=== PATIENT | female | born 1955 | race Caucasian/White ===

== ENCOUNTER 2020-11-11 10:15 | Outpatient (CLI) | payer MEDICARE, OTHER, SELFPAY ==
--- NOTE | 2020-11-11 10:27 | NM_ITS ---
WS: [id number] NUCLEAR MEDICINE HIDA SCAN WITH GALLBLADDER EJECTION FRACTION HISTORY: ACUTE RUQ ABD PAIN COMPARISON: None available. TECHNIQUE: The patient was intravenously injected with 4.5 mCi of TC99m Mebrofenin. Immediate imaging over the right upper quadrant was followed by 5 minute image and additional images for a total of 60 minutes. Normal uptake of radiotracer throughout the liver. Activity identified in the gallbladder at 15 minutes and well distended by 60 minutes. Activity in the proximal small bowel was seen by 30 minutes. Good washout of the radiotracer from the liver by 60 minutes. The patient then drank 8 ounces of Ensure Plus. Ejection fraction at 60 minutes was 93%. Normal GB ej ection fraction is 35-75%. Post fatty meal symptoms: None. NM/NM hepatobiliary w phar* [id number] IMPRESSION: 1. Normal HIDA scan. 2. Normal gallbladder ejection fraction.
== END 2020-11-11 10:16 | disposition home or self-care (01) ==
LOC: RAD 10:24
PROVIDERS: PCP Physician Assistant Medical; Visit Provider Physician Assistant Medical
DX: R10.11 Right upper quadrant pain (principal)
CPT/HCPCS: 78227; A9537

== ENCOUNTER 2022-01-01 | Outpatient (CLI) | payer MEDICARE, OTHER, SELFPAY | END 2022-01-01 23:00 | disposition home or self-care (01) | LOC: RAD 03-05 22:10 | PROVIDERS: PCP Nurse Practitioner Family; Visit Provider Specialist | DX: R20.0 Anesthesia of skin (principal); R20.2 Paresthesia of skin | CPT/HCPCS: 36415; 85651; 86160; 86162; 86235; 86255; 86376; 99204; 99205 ==

== ENCOUNTER → 2022-01-01 13:16 | Outpatient (BNVA) | payer MEDICARE, OTHER, SELFPAY | PROVIDERS: PCP Nurse Practitioner Family; Referring Provider Nurse Practitioner Family; Visit Provider Specialist | DX: R90.89 Other abnormal findings on diagnostic imaging of central nervous system (principal); G43.711 Chronic migraine without aura, intractable, with status migrainosus; F17.200 Nicotine dependence, unspecified, uncomplicated | CPT/HCPCS: 99205 ==

== ENCOUNTER → 2022-02-07 09:52 | Outpatient (BNVA) | payer MEDICARE, OTHER, SELFPAY | PROVIDERS: PCP Nurse Practitioner Family; Visit Provider Specialist | DX: G43.711 Chronic migraine without aura, intractable, with status migrainosus (principal); Z86.73 Personal history of transient ischemic attack (TIA), and cerebral infarction without residual deficits; R90.82 White matter disease, unspecified; F17.210 Nicotine dependence, cigarettes, uncomplicated; R76.8 Other specified abnormal immunological findings in serum; M25.519 Pain in unspecified shoulder; M25.559 Pain in unspecified hip; M54.2 Cervicalgia; M54.9 Dorsalgia, unspecified | CPT/HCPCS: 99215 ==

== ENCOUNTER 2022-02-08 15:00 | Outpatient (CLI) | payer MEDICARE, OTHER, SELFPAY ==
--- NOTE | 2022-02-08 15:15 | MR_ITS ---
WS: [id number] MRA ANGIOGRAPHY NATIVE OF [place] HISTORY: I67.9 - Cerebrovascular disease, unspecified COMPARISON: None available. TECHNIQUE: 3-D MR angiography is performed of the [place] of [place]. All images are reviewed including source images. Very small caliber distal RIGHT vertebral artery but it is patent. Dominant LEFT vertebral artery. Th e basilar artery is normal. Posterior cerebral arteries are both well identified and normal. Small ca liber posterior communicating arteries. Intracranial carotid arteries are normal size. No occlusions. Middle cerebral arteries are both well opacified. No aneurysms. Absent or hypoplastic LEFT A1 segment. A2 segments are patent. Anterior comm unicating artery is normal. MR/MR angio head wo con [id number] IMPRESSION: 1. Absent or hypoplastic LEFT A1 segment. 2. No aneurysms or occlusion or stenosis.
--- NOTE | 2022-02-08 15:30 | MR_ITS ---
WS: [id number] MRI BRAIN WITH AND WITHOUT CONTRAST HISTORY: I67.9 - Cerebrovascular disease, unspecified, possible stroke. COMPARISON: 08/11/2021 TECHNIQUE: Multiplanar imaging performed through the brain with MultiHance 15 ml's IV. Quality of this examination is compromised by motion. Patient was unable to remain still for this exa mination. No acute infarcts are seen. Andres-white matter differentiation is well preserved. No significant signa l abnormality noted in the white matter but these may not be identified due to motion artifact. Small vessel ischemic disease was identified on the prior brain from 08/11/2021. No susceptibility artifacts or prior lacunar infarcts. Ventricles and extra-axial spaces are normal. Clivus and pituitary gland are normal. Visualized posterior fossa and brainstem are also normal. Significantly limited by motion artifact. Enhancing soft tissue mass measuring 10 x 7 mm involving th e posterior RIGHT temporal region. This is probably a dural based mass and may be a meningioma. This is very difficult to completely described due to the significant motion artifact. This is really only seen on one sequence. Dural venous sinuses are normal. Paranasal sinuses: Well aerated with no significant disease. Mastoid air cells: Normal. Calvarium and scalp: Normal. MR/MR head wo/w con [id number] IMPRESSION: 1. No acute infarct. No areas of hemorrhage or midline shift. 2. Study is significantly compromised by motion artifact. 3. Suspect dural based mass consistent with meningioma involving the RIGHT tem poral region measuring 10 x 7 mm. Suggest repeating MRI with contrast in 3 [facility] hs as this is very poorly visualized due to the motion.
== END 2022-02-08 15:01 | disposition home or self-care (01) ==
LOC: RAD 15:01
PROVIDERS: PCP Nurse Practitioner Family; Visit Provider Specialist
DX: I67.9 Cerebrovascular disease, unspecified (principal)
CPT/HCPCS: 70544; 70551; 70553

== ENCOUNTER 2022-02-28 11:06 | Emergency (ER) | payer MEDICARE, OTHER, SELFPAY ==
[2022-02-28 12:20] VITALS: BP 195/92; PULSE 65; RESP 14; TEMP 36.4; O2SAT 99; BMI 21.9
[2022-02-28 13:10] LABS: Basophils # 0.1 10^3/uL (0.0-0.1); Basophils % 0.9 %; Eosinophils % 0.2 %; Hematocrit 46.6 % (37.0-47.0); Hemoglobin 14.8 g/dL (11.5-15.3); Lymphocytes % 16.7 %; Mean Corpuscular HGB Conc 31.8 g/dL (30.0-36.0); Mean Corpuscular Hemoglobin 30.5 pg (28.0-34.0); Mean Corpuscular Volume 96.1 fl (81-99); Mean Platelet Volume 12.1 fL (7.4-10.4); Monocytes # 0.4 10^3/uL (0.2-0.9); Neutrophils # 9.45 10^3/uL (1.8-7.7); Neutrophils % 78.8 %; Nucleated Red Blood Cells % 0 %; Platelet Count 389 10^3/cmm (130-400); Red Blood Count 4.85 10^6/uL (4.1-5.3)
[2022-02-28 13:32] LABS: Alanine Aminotransferase 15 U/L (0-33); Albumin Level 4.4 g/dL (3.5-5.2); Alkaline Phosphatase 90 U/L (35-105); Anion Gap 16.9 (5-19); Aspartate Amino Transferase 22 U/L (0-32); Blood Urea Nitrogen 18 mg/dL (8-23); Calcium 10.3 mg/dL (8.5-10.5); Carbon Dioxide 24 mmol/L (22-29); Chloride 103 mmol/L (98-107); Globulin 3.1 g/dL (1.3-4.6); Glomerular Filtration Rate 55.1 mL/min (90-130); Glucose 118 mg/dL (65-115); Lipase 33 U/L (13-60); Osmolality Calculated 293 mOsm/kg (285-295); Potassium 3.9 mmol/L (3.5-5.1); Sodium 140 mmol/L (136-145); Total Bilirubin 0.4 mg/dL (0.15-1.2); Total Protein 7.5 g/dL (6.6-8.7)
--- NOTE | 2022-02-28 13:59 | US_ITS ---
WS: [id number] RIGHT UPPER QUADRANT ULTRASOUND HISTORY: RUQ and epigastric pain, n/v COMPARISON: None available. Liver: 12.3 cm in length. Normal size liver. No bile duct dilatation or mass. Portal Vein: Normal hepatopetal flow with monophasic waveform. Gallbladder: Normally distended gallbladder with no stones or wall thickening. CBD: 0.6 cm Pancreas: Normal size and echogenicity. Right kidney: 8.4 cm in length. Low normal size and normal echogenicity. No hydronephrosis or mass. Aorta and IVC: Unremarkable abdominal aorta and IVC. No ascites. US/US gall bladder [id number] IMPRESSION: Normal RIGHT upper quadrant ultrasound.
--- NOTE | 2022-02-28 14:02 | W.ED.ABDPA2 ---
Documented by User: MEG Hernadez 02/28/22 21:48 HPI - Abdominal Pain General: Chief Complaint: Abdominal Pain Stated Complaint: Abd pain Time Seen by Provider: 02/28/22 13:29 History of Present Illness: Patient is a 66-year-old female comes to the ED with abdominal pain. Patient has been having this abdominal pain on and off for the past 2 years. She has been told before the past that its gallbladder attacks but has not seen a general surgeon for follow-up. Over the past couple days she has had worsening epigastric and right upper quadrant abdominal pain. She rates her pain currently a 10 out of 10. Pain radiates to the middle of her back. She has nausea and vomiting along with the pain. Her symptoms worsen after she eats. Denies any fevers. Patient endorses taking Protonix daily but says for the past couple weeks she stopped taking it to see if that would help her symptoms. Since stopping Protonix she says her abdominal pain is remained unchanged and has not gotten any better or worse. Associated Symptoms: Reports nausea and vomiting; Denies chills, constipation, diarrhea, dysuria, fever(s), hematochezia and hematuria Review of Systems Const: Denies: fever(s), chills or fatigue Eyes: Denies: change in vision or eye discomfort ENMT: Denies: throat pain, odynophagia, nasal discharge or nasal congestion Card: Denies: chest pain, palpitations, edema, swelling of feet/ankles, dyspnea on exertion or orthopnea Resp: Denies: dyspnea, productive cough or non-productive cough GI: Reports: abdominal pain, nausea and vomiting; Denies: diarrhea, constipation or hematochezia : Denies: flank pain, dysuria or hematuria Musc: Denies: neck pain, back pain or extremity swelling Skin/Breast: Denies: rash or new lesions Neuro: Denies: headache(s), numbness in extremities or weakness in extremities PFSH ED PFSH: Medical History (Updated 02/28/22 @ 17:12 by MEG Hernadez) Lyme disease Surgical History (Updated 02/28/22 @ 14:04 by MEG Hernadez) Hx of total hip arthroplasty Family History Mother Cancer Father Diabetes Son Diabetes Sister Diabetes Social History Smoking and tobacco status: never smoked Alcohol intake: never Physical Exam Const: COMMON NORMALS: patient oriented x3 and alert GENERAL APPEARANCE: cooperative HENMT: COMMON NORMALS: normocephalic HEAD & SCALP: normocephalic MOUTH: Normal oral and palatal mucosa present THROAT: posterior oropharynx normal and uvula midline Neck/C-Spine: COMMON NORMALS: supple GENERAL: Yes normal visual inspection Resp: COMMON NORMALS: normal respiratory effort, No retractions, No use of accessory muscles and clear to auscultation bilaterally AUSCULTATION: clear to auscultation bilaterally Cardio: COMMON NORMALS: regular rate, regular rhythm, S1 normal heart sound present, S2 normal heart sound present, No gallops present (Cardio), No clicks present (Cardio), No murmurs present (Cardio) and Peripheral pulses 2+ throughout RATE: regular rate RHYTHM: regular rhythm HEART SOUNDS: S1 normal heart sound present and S2 normal heart sound present PERIPHERAL PULSES: Peripheral pulses 2+ throughout GI: COMMON NORMALS: Normal to inspection, nondistended, normoactive bowel sounds present, Soft to palpation and no masses PALPATION: Yes Soft to palpation and Yes Tenderness to palpation present (GI) Details: RUQ and other (Epigastric) : COMMON NORMALS: Yes no CVA tenderness BLADDER/KIDNEY EXAM: Yes no CVA tenderness Back/Pelvis: COMMON NORMALS: no CVA tenderness Extremity: COMMON NORMALS: normal to inspection Neuro: COMMON NORMALS: patient oriented x3 SENSORIUM/ORIENTATION: Yes alert GAIT: Yes Normal gait present Skin: GENERAL SKIN EXAM: dry skin Course Vital Signs: Vital signs: Vital Signs Temperature 97.6 F 02/28/22 12:20 Pulse Rate 65 02/28/22 18:27 Respiratory Rate 18 02/28/22 15:21 Blood Pressure 123/56 02/28/22 18:27 Pulse Oximetry 97 02/28/22 18:27 Oxygen Delivery Me thod 02/28/22 17:00 MDM - Abdominal Pain Medical Decision Making Patient is a 66-year-old female comes to the ED with abdominal pain nausea vomiting. Patient says she has been struggling with episodic symptoms like this for the past 2 years. Abdominal pain is in right upper quadrant and epigastric region of abdomen. Vitals are stable. She appears nontoxic and in no acute distress or pain. Patient has epigastric and right upper quadrant abdominal tenderness. Rest of exam is benign. White blood cell count 12 and the rest of her labs are unremarkable. H. pylori negative. Ultrasound gallbladder showed normal right upper quadrant. CT of abdomen pelvis showed some prominent fluid in the small bowel which could reflect an enterocolitis but no other acute findings noted. Patient was given IV fluids, Zofran and morphine and her symptoms were controlled. Given patient's symptoms and history she likely has biliary colic and I am referring her to general surgery for follow-up. Patient was discharged home with a prescription for Zofran and some Percocet to help with pain. Return to ED precautions given. Patient understood and agreed with plan. Lab Data I reviewed the patient's lab results. : 02/28/22 13:03 02/28/22 13:03 Labs/Radiology: Radiology Impressions Gallbladder Ultrasound 02/28/22 13:59 IMPRESSION: Normal RIGHT upper quadrant ultrasound. Abdomen/Pelvis CT 02/28/22 15:12 IMPRESSION: 1. Prominent fluid in the small bowel and colon may reflect an enterocolitis. 2. Emphysematous changes. 3. Bilateral renal cysts, negative for follow-up advised. COMMENTS: Consistent with the [employer]'s Incidental Findings Committee white paper (J Am Cuate Radiol 2018): Any incidental renal lesion less than 1 cm or classified as too small to characterize, or any incidental cystic renal lesion characterized as simple-appearing, is likely benign. No follow-up imaging is recommended for these lesions per consensus recommendations based on imaging criteria. Laboratory Results WBC 12.0 10^3/uL (4.0-10.0) H 02/28/22 13:03 RBC 4.85 10^6/uL (4.1-5.3) 02/28/22 13:03 Hgb 14.8 g/dL (11.5-15.3) 02/28/22 13:03 Hct 46.6 % (37.0-47.0) 02/28/22 13:03 MCV 96.1 fl (81-99) 02/28/22 13:03 MCH 30.5 pg (28.0-34.0) 02/28/22 13:03 MCHC 31.8 g/dL (30.0-36.0) 02/28/22 13:03 RDW 15.0 % (12.1-15.1) 02/28/22 13:03 Plt Count 389 10^3/cmm (130-400) 02/28/22 13:03 MPV 12.1 fL (7.4-10.4) H 02/28/22 13:03 Neut % (Auto) 78.8 % 02/28/22 13:03 Lymph % (Auto) 16.7 % 02/28/22 13:03 [place] % (Auto) 3.0 % 02/28/22 13:03 Eos % (Auto) 0.2 % 02/28/22 13:03 Baso % (Auto) 0.9 % 02/28/22 13:03 Neut # (Auto) 9.45 10^3/uL (1.8-7.7) H 02/28/22 13:03 Lymph # (Auto) 2.0 10^3/uL (0.8-4.8) 02/28/22 13:03 [place] # (Auto) 0.4 10^3/uL (0.2-0.9) 02/28/22 13:03 Eos # (Auto) 0.0 10^3/uL (0.0-0.8) 02/28/22 13:03 Baso # (Auto) 0.1 10^3/uL (0.0-0.1) 02/28/22 13:03 Nucleated RBC % (auto) 0 % 02/28/22 13:03 Nucleated RBCs # 0.0 /100WBC 02/28/22 13:03 Sodium 140 mmol/L (136-145) 02/28/22 13:03 Potassium 3.9 mmol/L (3.5-5.1) 02/28/22 13:03 Chloride 103 mmol/L (98-107) 02/28/22 13:03 Carbon Dioxide 24 mmol/L (22-29) 02/28/22 13:03 Anion Gap 16.9 (5-19) 02/28/22 13:03 BUN 18 mg/dL (8-23) 02/28/22 13:03 Creatinine 1.0 mg/dL (0.5-0.9) H 02/28/22 13:03 GFR Calculation 55.1 mL/min (90-130) L 02/28/22 13:03 Glucose 118 mg/dL (65-115) H 02/28/22 13:03 Calculated Osmolality 293 mOsm/kg (285-295) 02/28/22 13:03 Calcium 10.3 mg/dL (8.5-10.5) 02/28/22 13:03 Total Bilirubin 0.4 mg/dL (0.15-1.2) 02/28/22 13:03 AST 22 U/L (0-32) 02/28/22 13:03 ALT 15 U/L (0-33) 02/28/22 13:03 Alkaline Phosphatase 90 U/L (35-105) 02/28/22 13:03 Total Protein 7.5 g/dL (6.6-8.7) 02/28/22 13:03 Albumin 4.4 g/dL (3.5-5.2) 02/28/22 13:03 Globulin 3.1 g/dL (1.3-4.6) 02/28/22 13:03 Lipase 33 U/L (13-60) 02/28/22 13:03 Urine Color Yellow (Yellow) 02/28/22 14:58 Urine Appearance Clear (CLEAR) 02/28/22 14:58 Urine pH 5 (5-7) 02/28/22 14:58 Ur Specific [place] 1.020 (1.005-1.030) 02/28/22 14:58 Urine Protein Neg (Negative) 02/28/22 14:58 Urine Glucose (UA) Norm (Normal) 02/28/22 14:58 Urine Ketones 1+ (Negative) H 02/28/22 14:58 Urine Blood Neg (Negative) 02/28/22 14:58 Urine Nitrate Negative (Negative) 02/28/22 14:58 Urine Bilirubin Neg (Negative) 02/28/22 14:58 Urine Urobilinogen Norm mg/dL (Negative) 02/28/22 14:58 Ur Leukocyte Esterase Negative (Negative) 02/28/22 14:58 H. pylori IgG Antibody Negative (Negative) 02/28/22 13:03 Discharge Plan Discharge Patient Disposition: Home Clinical Impression: Biliary colic Condition: Stable Prescriptions: New ondansetron 4 mg tablet,disintegrating 4 mg PO Q8H PRN (Reason: nausea and vomiting) Qty: 20 0RF No Action cetirizine 10 mg tablet 10 mg PO DAILY PRN (Reason: Allergy Symptoms) atorvastatin 20 mg tablet 20 mg PO DAILY pantoprazole 40 mg tablet,delayed release (DR/EC) 40 mg PO DAILY furosemide [Lasix] 20 mg tablet 20 mg PO DAILY atomoxetine [Strattera] 80 mg capsule 80 mg PO DAILY baclofen 10 mg tablet 10 mg PO DAILY estradiol [Estrace] 1 mg tablet 0.5 mg PO DAILY potassium chloride 20 mEq/15 mL liquid 20 meq PO DAILY tizanidine [Zanaflex] 4 mg capsule 4 mg PO BID PRN (Reason: Muscle Spasm) multivitamin Tablet 1 tab PO DAILY clopidogrel 75 mg tablet 75 mg PO ONCE 90 Days Qty: 90 0RF amitriptyline 25 mg tablet 25 mg PO ONCE 90 Days Qty: 90 0RF topiramate [Topamax] 100 mg tablet 100 mg PO DAILY 90 Days Qty: 90 3RF propranolol 20 mg tablet 20 mg PO BID Qty: 60 0RF fluticasone propionate 50 mcg/actuation spray,suspension 2 spray INTRANASAL DAILY duloxetine 40 mg capsule,delayed release(DR/EC) 40 mg PO BID PRN (Reason: Anxiety) Discharge Orders: Discharge ED (Routine); Ordered 02/28/22 Ordered By: Hector Rivas Referrals: Atul Khoury [Primary Care Provider] - Discharge Diet: Advance as tolerated and Clear Liquid Discharge Activity: Increase activity as tolerated Patient Instructions: Biliary Colic (ED), Opioid Safety Activity Restrictions/Additional Instructions: Follow-up with medical provider as directed in the next 5 to 7 days for reevaluation. Case management will contact you in the next several days set up an appointment with general surgery for follow-up on abdominal pain, nausea and vomiting. Take medications as prescribed. Return to the ER or your medical provider if condition worsens. Please read and understand discharge instructions. Thank you for choosing [facility] for your healthcare needs today. Please realize this is an emergency room and that we are providing you with a medical screening exam and this may not be complete and all inclusive of all the testing and or work up that you may need to determine your ailment or severity of your illness. It is very important that you follow up as instructed or that you return to the Emergency Department should you have concerns or if your condition changes or worsens in any way. Coding Level of Care Code ED Billiard Table Assembler for Chg Fwd Exam Comprehensive Documented by User: Husam Goldberg MD 03/02/22 12:22 HPI - Abdominal Pain General: Chief Complaint: Abdominal Pain Stated Complaint: Abd pain Time Seen by Provider: 02/28/22 13:29 PFS ED PFSH: Medical History (Updated 02/28/22 @ 17:12 by MEG Hernadez) Lyme disease Surgical History (Updated 02/28/22 @ 14:04 by MEG Hernadez) Hx of total hip arthroplasty Family History Mother Cancer Father Diabetes Son Diabetes Sister Diabetes Social History Smoking and tobacco status: never smoked Alcohol intake: never Course Vital Signs: Vital signs: Vital Signs Temperature 97.6 F 02/28/22 12:20 Pulse Rate 65 02/28/22 18:27 Respiratory Rate 18 02/28/22 15:21 Blood Pressure 123/56 02/28/22 18:27 Pulse Oximetry 97 02/28/22 18:27 Oxygen Delivery Me thod 02/28/22 17:00 MDM - Abdominal Pain Medical Decision Making Patient is a 66-year-old female comes to the ED with abdominal pain nausea vomiting. Patient says she has been struggling with episodic symptoms like this for the past 2 years. Abdominal pain is in right upper quadrant and epigastric region of abdomen. Vitals are stable. She appears nontoxic and in no acute distress or pain. Patient has epigastric and right upper quadrant abdominal tenderness. Rest of exam is benign. White blood cell count 12 and the rest of her labs are unremarkable. H. pylori negative. Ultrasound gallbladder showed normal right upper quadrant. CT of abdomen pelvis showed some prominent fluid in the small bowel which could reflect an enterocolitis but no other acute findings noted. Patient was given IV fluids, Zofran and morphine and her symptoms were controlled. Given patient's symptoms and history she likely has biliary colic and I am referring her to general surgery for follow-up. Patient was discharged home with a prescription for Zofran and some Percocet to help with pain. Return to ED precautions given. Patient understood and agreed with plan. I have reviewed this documentation by MEG Hernadez. Husam Goldberg MD Emergency Medicine Lab Data : 02/28/22 13:03 02/28/22 13:03 Labs/Radiology: Radiology Impressions Gallbladder Ultrasound 02/28/22 13:59 IMPRESSION: Normal RIGHT upper quadrant ultrasound. Abdomen/Pelvis CT 02/28/22 15:12 IMPRESSION: 1. Prominent fluid in the small bowel and colon may reflect an enterocolitis. 2. Emphysematous changes. 3. Bilateral renal cysts, negative for follow-up advised. COMMENTS: Consistent with the [employer]'s Incidental Findings Committee white paper (J Am Cuate Radiol 2018): Any incidental renal lesion less than 1 cm or classified as too small to characterize, or any incidental cystic renal lesion characterized as simple-appearing, is likely benign. No follow-up imaging is recommended for these lesions per consensus recommendations based on imaging criteria. Laboratory Results WBC 12.0 10^3/uL (4.0-10.0) H 02/28/22 13:03 RBC 4.85 10^6/uL (4.1-5.3) 02/28/22 13:03 Hgb 14.8 g/dL (11.5-15.3) 02/28/22 13:03 Hct 46.6 % (37.0-47.0) 02/28/22 13:03 MCV 96.1 fl (81-99) 02/28/22 13:03 MCH 30.5 pg (28.0-34.0) 02/28/22 13:03 MCHC 31.8 g/dL (30.0-36.0) 02/28/22 13:03 RDW 15.0 % (12.1-15.1) 02/28/22 13:03 Plt Count 389 10^3/cmm (130-400) 02/28/22 13:03 MPV 12.1 fL (7.4-10.4) H 02/28/22 13:03 Neut % (Auto) 78.8 % 02/28/22 13:03 Lymph % (Auto) 16.7 % 02/28/22 13:03 [place] % (Auto) 3.0 % 02/28/22 13:03 Eos % (Auto) 0.2 % 02/28/22 13:03 Baso % (Auto) 0.9 % 02/28/22 13:03 Neut # (Auto) 9.45 10^3/uL (1.8-7.7) H 02/28/22 13:03 Lymph # (Auto) 2.0 10^3/uL (0.8-4.8) 02/28/22 13:03 [place] # (Auto) 0.4 10^3/uL (0.2-0.9) 02/28/22 13:03 Eos # (Auto) 0.0 10^3/uL (0.0-0.8) 02/28/22 13:03 Baso # (Auto) 0.1 10^3/uL (0.0-0.1) 02/28/22 13:03 Nucleated RBC % (auto) 0 % 02/28/22 13:03 Nucleated RBCs # 0.0 /100WBC 02/28/22 13:03 Sodium 140 mmol/L (136-145) 02/28/22 13:03 Potassium 3.9 mmol/L (3.5-5.1) 02/28/22 13:03 Chloride 103 mmol/L (98-107) 02/28/22 13:03 Carbon Dioxide 24 mmol/L (22-29) 02/28/22 13:03 Anion Gap 16.9 (5-19) 02/28/22 13:03 BUN 18 mg/dL (8-23) 02/28/22 13:03 Creatinine 1.0 mg/dL (0.5-0.9) H 02/28/22 13:03 GFR Calculation 55.1 mL/min (90-130) L 02/28/22 13:03 Glucose 118 mg/dL (65-115) H 02/28/22 13:03 Calculated Osmolality 293 mOsm/kg (285-295) 02/28/22 13:03 Calcium 10.3 mg/dL (8.5-10.5) 02/28/22 13:03 Total Bilirubin 0.4 mg/dL (0.15-1.2) 02/28/22 13:03 AST 22 U/L (0-32) 02/28/22 13:03 ALT 15 U/L (0-33) 02/28/22 13:03 Alkaline Phosphatase 90 U/L (35-105) 02/28/22 13:03 Total Protein 7.5 g/dL (6.6-8.7) 02/28/22 13:03 Albumin 4.4 g/dL (3.5-5.2) 02/28/22 13:03 Globulin 3.1 g/dL (1.3-4.6) 02/28/22 13:03 Lipase 33 U/L (13-60) 02/28/22 13:03 Urine Color Yellow (Yellow) 02/28/22 14:58 Urine Appearance Clear (CLEAR) 02/28/22 14:58 Urine pH 5 (5-7) 02/28/22 14:58 Ur Specific [place] 1.020 (1.005-1.030) 02/28/22 14:58 Urine Protein Neg (Negative) 02/28/22 14:58 Urine Glucose (UA) Norm (Normal) 02/28/22 14:58 Urine Ketones 1+ (Negative) H 02/28/22 14:58 Urine Blood Neg (Negative) 02/28/22 14:58 Urine Nitrate Negative (Negative) 02/28/22 14:58 Urine Bilirubin Neg (Negative) 02/28/22 14:58 Urine Urobilinogen Norm mg/dL (Negative) 02/28/22 14:58 Ur Leukocyte Esterase Negative (Negative) 02/28/22 14:58 H. pylori IgG Antibody Negative (Negative) 02/28/22 13:03 Discharge Plan Discharge Patient Disposition: Home Clinical Impression: Biliary colic Condition: Stable Prescriptions: New ondansetron 4 mg tablet,disintegrating 4 mg PO Q8H PRN (Reason: nausea and vomiting) Qty: 20 0RF No Action cetirizine 10 mg tablet 10 mg PO DAILY PRN (Reason: Allergy Symptoms) atorvastatin 20 mg tablet 20 mg PO DAILY pantoprazole 40 mg tablet,delayed release (DR/EC) 40 mg PO DAILY furosemide [Lasix] 20 mg tablet 20 mg PO DAILY atomoxetine [Strattera] 80 mg capsule 80 mg PO DAILY baclofen 10 mg tablet 10 mg PO DAILY estradiol [Estrace] 1 mg tablet 0.5 mg PO DAILY potassium chloride 20 mEq/15 mL liquid 20 meq PO DAILY tizanidine [Zanaflex] 4 mg capsule 4 mg PO BID PRN (Reason: Muscle Spasm) multivitamin Tablet 1 tab PO DAILY clopidogrel 75 mg tablet 75 mg PO ONCE 90 Days Qty: 90 0RF amitriptyline 25 mg tablet 25 mg PO ONCE 90 Days Qty: 90 0RF topiramate [Topamax] 100 mg tablet 100 mg PO DAILY 90 Days Qty: 90 3RF propranolol 20 mg tablet 20 mg PO BID Qty: 60 0RF fluticasone propionate 50 mcg/actuation spray,suspension 2 spray INTRANASAL DAILY duloxetine 40 mg capsule,delayed release(DR/EC) 40 mg PO BID PRN (Reason: Anxiety) Discharge Orders: Discharge ED (Routine); Ordered 02/28/22 Ordered By: Hector Rivas Referrals: Atul Khoury [Primary Care Provider] - Discharge Diet: Advance as tolerated and Clear Liquid Discharge Activity: Increase activity as tolerated Patient Instructions: Biliary Colic (ED), Opioid Safety Activity Restrictions/Additional Instructions: Follow-up with medical provider as directed in the next 5 to 7 days for reevaluation. Case management will contact you in the next several days set up an appointment with general surgery for follow-up on abdominal pain, nausea and vomiting. Take medications as prescribed. Return to the ER or your medical provider if condition worsens. Please read and understand discharge instructions. Thank you for choosing [facility] for your healthcare needs today. Please realize this is an emergency room and that we are providing you with a medical screening exam and this may not be complete and all inclusive of all the testing and or work up that you may need to determine your ailment or severity of your illness. It is very important that you follow up as instructed or that you return to the Emergency Department should you have concerns or if your condition changes or worsens in any way. Coding Level of Care Code ED Billiard Table Assembler for Donte Isaacs Exam Comprehensive
[2022-02-28 14:58] LABS: H. Pylori IgG Antibody Negative (Negative)
--- NOTE | 2022-02-28 15:12 | CTR_ITS ---
PROCEDURE INFORMATION: Exam: CT Abdomen And Pelvis With Contrast Exam date and time: 02/28/2022 3:27 PM Age: 66 years old Clinical indication: Abdominal pain; Additional info: Epigastric abdominal pain, ruq pain w/ n/v TECHNIQUE: Imaging protocol: Computed tomography of the abdomen and pelvis with contrast. Radiation optimization: All CT scans at this facility use at least one of these dose optimization techniques: automated exposure control; mA and/or kV adjustment per patient size (includes targeted exams where dose is matched to clinical indication); or iterative reconstruction. Contrast material: OMNIPAUE 350; Contrast volume: 95 ml; Contrast route: INTRAVENOUS (IV); COMPARISON: CT abdomen pelvis wo con [id number] 08/24/2016 6:21 PM RADIATION DOSE METRICS: Total DLP (mGy-cm): 358.63 FINDINGS: Lungs: Emphysematous changes. Liver: Normal. No mass. Gallbladder and bile ducts: Normal. No calcified stones. No ductal dilation. Pancreas: Normal. No ductal dilation. Spleen: Normal. No splenomegaly. Adrenal glands: Normal. No mass. Kidneys and ureters: Bilateral renal cysts, negative for follow-up advised. Stomach and bowel: Prominent fluid in the small bowel and colon may reflect an enterocolitis. Appendix: No evidence of appendicitis. Intraperitoneal space: Unremarkable. No free air. No significant fluid collection. Vasculature: Unremarkable. No abdominal aortic aneurysm. Lymph nodes: Unremarkable. No enlarged lymph nodes. Urinary bladder: Unremarkable as visualized. Reproductive: Unremarkable as visualized. Bones/joints: Right sacroiliac joint hardware in place. Soft tissues: Unremarkable. CT/CT abdomen pelvis w con* [id number] IMPRESSION: 1. Prominent fluid in the small bowel and colon may reflect an enterocolitis. 2. Emphysematous changes. 3. Bilateral renal cysts, negative for follow-up advised. COMMENTS: Consistent with the [employer]'s Incidental Findings Committee white paper (J Am Cuate Radiol 2018): Any incidental renal lesion less than 1 cm or classified as too small to characterize, or any incidental cystic renal lesion characterized as simple-appearing, is likely benign. No follow-up imaging is recommended for these lesions per consensus recommendations based on imaging criteria.
[2022-02-28] MEDS: sodium chloride 0.9% 1,000 ML 999 ML IV (15:19)
[2022-02-28] MEDS: ondansetron 2 mg/ML SDV 2 mL 4 MG IVP (15:20)
[2022-02-28 15:21] VITALS: RESP 18
[2022-02-28] MEDS: morphine 4 mg/mL SDV 1 mL IVP ×2 (15:21→17:21)
[2022-02-28] MEDS: iohexol 350 mg/mL 100 mL Btl IV (15:38)
[2022-02-28 15:42] LABS: Add Urine Microscopic? NO; Charge for UA Resulting for Rev
[2022-02-28 16:24] VITALS: PULSE 65; O2SAT 96
[2022-02-28 16:54] LABS: Urine Appearance Clear (CLEAR); Urine Color Yellow (Yellow)
[2022-02-28 16:55] LABS: Bilirubin Urine Neg (Negative); Blood Urine Neg (Negative); Glucose Urine UA Norm (Normal); Ketones Urine 1+ (Negative); Leukocyte Esterase Urine Negative (Negative); Nitrate Urine Negative (Negative); Protein Urine Neg (Negative); Urobilinogen Urine Norm (Negative); pH Urine 5 (5-7)
[2022-02-28 17:00] VITALS: BP 141/72; PULSE 66; O2SAT 96
[2022-02-28 18:27] VITALS: BP 123/56; PULSE 65; O2SAT 97
--- NOTE | 2022-03-01 12:53 | DCPLANNER ---
Addendum entered by Maia De La Garza 03/28/22 15:28: Patient had a follow up appointment scheduled for 03.13.[address] Mason at general surgery - patient did attend appointment. Original Note: poultry barn manager had message to schedule a follow up appointment for patient with general surgery. poultry barn manager sent patients information to the front office staff at general surgery. Patients information will be printed and reviewed. Clinic will call patient with appointment information.
== END 2022-02-28 18:25 | disposition home or self-care (01) ==
PROVIDERS: Emergency Medicine; Emergency Provider Physician Assistant; PCP Nurse Practitioner Family
DX: K80.50 Calculus of bile duct without cholangitis or cholecystitis without obstruction (principal); Z79.02 Long term (current) use of antithrombotics/antiplatelets
CPT/HCPCS: 36415; 74177; 76705; 80053; 81003; 83690; 85025; 86677; 96361; 96374; 96375; 96376; 99285; J2270; J2405; J7030; Q9967

== ENCOUNTER → 2022-03-13 13:05 | Outpatient (BNVA) | payer MEDICARE, OTHER, SELFPAY | PROVIDERS: PCP Nurse Practitioner Family; Visit Provider Surgery | DX: R10.13 Epigastric pain (principal); K21.9 Gastro-esophageal reflux disease without esophagitis | CPT/HCPCS: 99203 ==

== ENCOUNTER 2022-03-16 16:38 | Emergency (ER) | payer MEDICARE, OTHER, SELFPAY ==
[2022-03-16 16:49] VITALS: BP 137/68; PULSE 89; RESP 20; TEMP 35.7; O2SAT 98; BMI 20.5
--- NOTE | 2022-03-16 17:23 | CTR_ITS ---
PROCEDURE INFORMATION: Exam: CTA Abdomen and Pelvis With Contrast Exam date and time: 03/16/2022 10:33 PM Age: 66 years old Clinical indication: Other: Back abdomen pain; Abdominal pain; Acute; Additional info: Ongoing abdominal pain, getting worse. TECHNIQUE: Imaging protocol: . Computed tomographic angiography of the abdomen and pelvis with contrast. 3D rendering (Not supervised by radiologist): MIP and/or 3D reconstructed images were created by the technologist. Radiation optimization: All CT scans at this facility use at least one of these dose optimization techniques: automated exposure control; mA and/or kV adjustment per patient size (includes targeted exams where dose is matched to clinical indication); or iterative reconstruction. Contrast material: OMNIPAQUE 350; Contrast volume: 100 ml; Contrast route: INTRAVENOUS (IV); COMPARISON: CT abdomen pelvis w con* [id number] 02/28/2022 3:27 PM RADIATION DOSE METRICS: Total DLP (mGy-cm): 279.79 FINDINGS: VASCULATURE: Pulmonary arteries: Normal. No pulmonary emboli. Aorta: No aortic aneurysm. No aortic dissection. 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 Renal arteries: Right renal artery 70-80% luminal narrowing proximally with contrast seen distally Right iliac arteries: No occlusion or significant stenosis. Left iliac arteries: No occlusion or significant stenosis. CHEST: Lungs: Unremarkable. No consolidation. No masses. Pleural spaces: Unremarkable. No pneumothorax. No pleural effusion. Heart: Unremarkable. No cardiomegaly. No pericardial effusion. ABDOMEN AND PELVIS: Liver: No mass. Gallbladder and bile ducts: Gallbladder is somewhat prominent, ultrasound could further evaluate this. Pancreas: Unremarkable. No mass. No ductal dilation. Spleen: Unremarkable. No splenomegaly. Adrenal glands: Unremarkable. No mass. Kidneys and ureters: Unremarkable. No solid mass. No hydronephrosis. Stomach and bowel: Air is suspected in the gastric wall, as best seen posteriorly, series 2 for image 29, perhaps related to a gastritis, other etiologies such as ischemia are also a consideration depending on the clinical scenario. Prominent fluid in stomach, small bowel and colon without dilation may reflect a gastro enterocolitis. 12 mm hyperdensity in the distal descending duodenum, likely reflects ingested material, contrast extravasation secondary to active bleeding may also be a consideration depending on the clinical scenario. Additionally some layering dense material is seen in the proximal ascending as well as the descending colon which may reflect ingested material, contrast extravasation secondary to bleeding may also be a consideration, however, no discrete source of bleeding is seen, please correlate clinically as no history of bleeding as indicated. Appendix: No evidence of appendicitis. Intraperitoneal space: Unremarkable. No free air. No significant fluid collection. Urinary bladder: Unremarkable. No mass. Reproductive: Unremarkable as visualized. Lymph nodes: Unremarkable. No enlarged lymph nodes. Bones/joints: Surgical screws bridging the right sacroiliac joint. Soft tissues: Unremarkable. CT/CT angio abdomen pelvis [id number] IMPRESSION: 1. Abdominal aorta intact. 2. Prominent fluid in stomach, small bowel and colon without dilation may reflect a gastro enterocolitis. 3. 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 4. Right renal artery 70-80% luminal narrowing proximally with contrast seen distally 5. Gallbladder is somewhat prominent, ultrasound could further evaluate this. 6. 12 mm hyperdensity in the distal descending duodenum, likely reflects ingested material, contrast extravasation secondary to active bleeding may also be a consideration depending on the clinical scenario. Additionally some layering dense material is seen in the proximal ascending as well as the descending colon which may reflect ingested material, contrast extravasation secondary to bleeding may also be a consideration, however, no discrete source of bleeding is seen, please correlate clinically as no history of bleeding as indicated. 7. Air is suspected in the gastric wall, as best seen posteriorly, series 2 for image 29, perhaps related to a gastritis, other etiologies such as ischemia are also a consideration depending on the clinical scenario.
[2022-03-16 18:13] LABS: Basophils # 0.1 10^3/uL (0.0-0.1); Basophils % 0.4 %; Eosinophils % 0.3 %; Hematocrit 47.6 % (37.0-47.0); Hemoglobin 15.7 g/dL (11.5-15.3); Lymphocytes # 1.7 10^3/uL (0.8-4.8); Lymphocytes % 10.9 %; Mean Platelet Volume 11.7 fL (7.4-10.4); Monocytes # 0.8 10^3/uL (0.2-0.9); Monocytes % 4.9 %; Neutrophils # 13.14 10^3/uL (1.8-7.7); Neutrophils % 82.7 %; Nucleated Red Blood Cells % 0 %; Platelet Count 425 10^3/cmm (130-400); Red Blood Count 5.23 10^6/uL (4.1-5.3); Red Cell Distribution Width 13.8 % (12.1-15.1); White Blood Count 15.9 10^3/uL (4.0-10.0)
[2022-03-16 18:38] LABS: Lactate (Lactic Acid level) 1.2 mmol/L (0.5-2.2)
[2022-03-16 18:39] LABS: Alanine Aminotransferase 18 U/L (0-33); Albumin Level 4.2 g/dL (3.5-5.2); Alkaline Phosphatase 112 U/L (35-105); Anion Gap 23.3 (5-19); Aspartate Amino Transferase 37 U/L (0-32); Blood Urea Nitrogen 23 mg/dL (8-23); Calcium 9.8 mg/dL (8.5-10.5); Carbon Dioxide 20 mmol/L (22-29); Chloride 95 mmol/L (98-107); Globulin 3.5 g/dL (1.3-4.6); Glomerular Filtration Rate 49.4 mL/min (90-130); Glucose 138 mg/dL (65-115); Lipase 115 U/L (13-60); Osmolality Calculated 286 mOsm/kg (285-295); Potassium 3.3 mmol/L (3.5-5.1); Sodium 135 mmol/L (136-145); Total Bilirubin 0.3 mg/dL (0.15-1.2); Total Protein 7.7 g/dL (6.6-8.7)
[2022-03-16 20:20] LABS: Add Urine Microscopic? NO; Charge for UA Resulting for Rev
[2022-03-16 20:22] LABS: Urine Color Yellow (Yellow)
[2022-03-16 20:23] LABS: Bilirubin Urine 1+ (Negative); Blood Urine Neg (Negative); Glucose Urine UA Norm (Normal); Ketones Urine 1+ (Negative); Leukocyte Esterase Urine Negative (Negative); Nitrate Urine Negative (Negative); Protein Urine Neg (Negative); Urine Appearance Hazy (CLEAR); Urobilinogen Urine Norm (Negative); pH Urine 5 (5-7)
[2022-03-16 22:00] VITALS: BP 137/68; PULSE 89; RESP 20; TEMP 35.7; O2SAT 98
[2022-03-16 22:30] VITALS: BP 199/124; PULSE 100; RESP 20; TEMP 36.4; O2SAT 98
[2022-03-16] MEDS: iohexol 350 mg/mL 500 mL Btl (per mL) IV (22:37)
[2022-03-16 23:00] VITALS: PULSE 89; RESP 18; TEMP 36.4; O2SAT 97
[2022-03-16 23:03] VITALS: RESP 20; O2SAT 97
[2022-03-16] MEDS: lidocaine 2% viscous 15 ML, aluminum-mag hydrox-simethicon 30 ML, sucralfate oral liq 1 GM PO (23:03)
[2022-03-16] MEDS: morphine 4 mg/mL SDV 1 mL IVP (23:03)
[2022-03-16] MEDS: ondansetron 2 mg/ML SDV 2 mL 4 MG IVP (23:04)
--- NOTE | 2022-03-16 23:27 | W.ED.ABDPA2 ---
Documented by User: Garth Henriquez DO 03/17/22 05:58 HPI - Abdominal Pain General: Chief Complaint: Abdominal Pain Stated Complaint: n/v/abd pains Time Seen by Provider: 03/16/22 22:15 Source: patient and family History of Present Illness: Very nice 66-year-old female. She presents with epigastric pain radiating to her back. She says she has been vomiting all day. She notes that she has been having pain like this on and off in a much more minor intensity for the past year or 2. She notes pain has been worsening over the last week, and has been constant for the past 24 to 48 hours. She denies fever. She denies diarrhea. She denies black tarry stools She evidently has a history of stroke. MD elicited complaint: abdominal pain Pertinent past history: other Onset (ago): day(s) Pain Consistency: constant Location: Epigastric Severity: severe Quality: stabbing Radiation: back Migration to: no migration Exacerbating factors: eating Relieving factors: nothing Associated Symptoms: Reports nausea, poor appetite and vomiting; Denies belching, bloating, change in bowel habits, change in stool character, coffee ground emesis, constipation, dysuria, fever(s), heartburn, hematochezia, hematuria, hematemesis, loose stools and melena Review of Systems Const: Denies: fever(s) ENMT: Denies: throat pain Card: Denies: chest pain Resp: Denies: dyspnea GI: Reports: nausea and vomiting; Denies: hematemesis, coffee ground emesis, heartburn, constipation, bloating, belching, change in bowel habits, change in stool character, hematochezia or melena : Denies: dysuria or hematuria Neuro: Denies: headache(s) PFSH ED PFSH: Medical History Acute carpal tunnel syndrome Arthritis Atherosclerosis of aorta Dyslipidemia GERD (gastroesophageal reflux disease) Headache Hypertension Hyperthyroidism Lyme disease Shingles Surgical History History of bowel resection History of lumbar surgery Hx of appendectomy Hx of colonoscopy 2 yrs ago Hx of total hip arthroplasty Family History Mother Cancer Father Diabetes Son Diabetes Sister Diabetes Social History Smoking and tobacco status: never smoked Alcohol intake: never Physical Exam Const: GENERAL APPEARANCE: cooperative, ill appearing and frail appearing (Mildly); not comfortable ORIENTATION/CONSCIOUSNESS: Yes awake HENMT: COMMON NORMALS: normocephalic, atraumatic and Normal external nose present HEAD & SCALP: normocephalic and atraumatic FACE & SINUS: normal facial exam and face symmetric NOSE: Normal external nose present Eye: COMMON NORMALS: Equal, round and reactive pupils present and EOMs intact bilaterally PUPIL: Yes Equal, round and reactive pupils present Neck/C-Spine: GENERAL: Yes trachea midline Chest: CHEST: Yes Symmetrical chest wall rise Resp: COMMON NORMALS: normal respiratory effort, No retractions, No use of accessory muscles and clear to auscultation bilaterally AUSCULTATION: clear to auscultation bilaterally Cardio: COMMON NORMALS: regular rate and regular rhythm RATE: regular rate RHYTHM: regular rhythm GI: COMMON NORMALS: Normal to inspection, nondistended, normoactive bowel sounds present PALPATION: Yes Tenderness to palpation present (GI) (Epigastric) Extremity: COMMON NORMALS: no pedal edema Neuro: JUHI COMA SCALE: document GCS findings Juhi coma scale eye opening: Spontaneous Juhi coma scale verbal response: Orientated Juhi coma scale motor response: Obey commands [place] coma scale total score: 15 SENSORY EXAM: Yes extremities (intact) Psych: COMMON NORMALS: speech normal SPEECH: Yes normal speech Skin: COMMON NORMALS: no rashes or lesions noted GENERAL SKIN EXAM: no rashes or lesions noted Course Vital Signs: Vital signs: Vital Signs Temperature 97.5 F L 03/17/22 05:00 Pulse Rate 103 H 03/17/22 07:50 Respiratory Rate 18 03/17/22 08:26 Blood Pressure 157/88 03/17/22 07:30 Pulse Oximetry 97 03/17/22 08:26 Oxygen Delivery Me thod 03/17/22 06:00 MDM - Abdominal Pain Medical Decision Making White blood cell count 15.9. Platelet count 425. Creatinine is 1.1. Potassium is 3.3. CTA of the abdomen shows a 90% narrowing the proximal celiac artery. There is contrast seen distally. There is also small pneumatosis of the gastric wall. This is at least mildly concerning for celiac angina/potential ischemia, although her lactic acid is normal. I spoke with vascular surgery at [facility] in [place]. Recommendations are heparin drip and Protonix. Their concern is even with revascularization, if stomach becomes ischemic, they have no foregut surgeon comfortable with gastric resection at that facility. They suggest [place] level of care. We have called out to the [facility] because of this. 5:28 AM: Patient remains on heparin drip. She is received Protonix. She still somewhat hypertensive, but otherwise stable. Morphine seems to help her pain. We have spoken with [facility] in [place], and the [facility], neither of which have any bed availability. [facility] in [place] is willing to discuss the patient, but were having trouble getting images to them so vascular surgery can make a decision. They are hoping they can have the problem solved on their end after 7 1 radiology department is staffed. She will be checked out to Dr. Celis. We are rechecking a lactic acid as well to see if it has risen. Lab Data : 03/17/22 02:23 03/16/22 18:00 Labs/Radiology: Radiology Impressions Abdomen/Pelvis CTA 03/16/22 17:23 IMPRESSION: 1. Abdominal aorta intact. 2. Prominent fluid in stomach, small bowel and colon without dilation may reflect a gastro enterocolitis. 3. 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 4. Right renal artery 70-80% luminal narrowing proximally with contrast seen distally 5. Gallbladder is somewhat prominent, ultrasound could further evaluate this. 6. 12 mm hyperdensity in the distal descending duodenum, likely reflects ingested material, contrast extravasation secondary to active bleeding may also be a consideration depending on the clinical scenario. Additionally some layering dense material is seen in the proximal ascending as well as the descending colon which may reflect ingested material, contrast extravasation secondary to bleeding may also be a consideration, however, no discrete source of bleeding is seen, please correlate clinically as no history of bleeding as indicated. 7. Air is suspected in the gastric wall, as best seen posteriorly, series 2 for image 29, perhaps related to a gastritis, other etiologies such as ischemia are also a consideration depending on the clinical scenario. Laboratory Results WBC 15.9 10^3/uL (4.0-10.0) H 11/11/22 18:00 RBC 5.23 10^6/uL (4.1-5.3) 03/16/22 18:00 Hgb 15.7 g/dL (11.5-15.3) H 03/16/22 18:00 Hct 47.6 % (37.0-47.0) H 03/16/22 18:00 MCV 91.0 fl (81-99) 03/16/22 18:00 MCH 30.0 pg (28.0-34.0) 03/16/22 18:00 MCHC 33.0 g/dL (30.0-36.0) 03/16/22 18:00 RDW 13.8 % (12.1-15.1) 03/16/22 18:00 Plt Count 410 10^3/cmm (130-400) H 03/17/22 02:23 MPV 11.7 fL (7.4-10.4) H 03/16/22 18:00 Neut % (Auto) 82.7 % 03/16/22 18:00 Lymph % (Auto) 10.9 % 03/16/22 18:00 Woodruff % (Auto) 4.9 % 03/16/22 18:00 Eos % (Auto) 0.3 % 03/16/22 18:00 Baso % (Auto) 0.4 % 03/16/22 18:00 Neut # (Auto) 13.14 10^3/uL (1.8-7.7) H 03/16/22 18:00 Lymph # (Auto) 1.7 10^3/uL (0.8-4.8) 03/16/22 18:00 Woodruff # (Auto) 0.8 10^3/uL (0.2-0.9) 03/16/22 18:00 Eos # (Auto) 0.0 10^3/uL (0.0-0.8) 03/16/22 18:00 Baso # (Auto) 0.1 10^3/uL (0.0-0.1) 03/16/22 18:00 Nucleated RBC % (auto) 0 % 03/16/22 18:00 Nucleated RBCs # 0.0 /100WBC 03/16/22 18:00 APTT 48.0 SECONDS (23.9-36.7) H 03/17/22 02:23 Sodium 135 mmol/L (136-145) L 03/16/22 18:00 Potassium 3.3 mmol/L (3.5-5.1) L 03/16/22 18:00 Chloride 95 mmol/L (98-107) L 03/16/22 18:00 Carbon Dioxide 20 mmol/L (22-29) L 03/16/22 18:00 Anion Gap 23.3 (5-19) H 03/16/22 18:00 BUN 23 mg/dL (8-23) 03/16/22 18:00 Creatinine 1.1 mg/dL (0.5-0.9) H 03/16/22 18:00 GFR Calculation 49.4 mL/min (90-130) L 03/16/22 18:00 Glucose 138 mg/dL (65-115) H 03/16/22 18:00 Calculated Osmolality 286 mOsm/kg (285-295) 03/16/22 18:00 Lactate 1.5 mmol/L (0.5-2.2) 03/17/22 05:45 Calcium 9.8 mg/dL (8.5-10.5) 03/16/22 18:00 Total Bilirubin 0.3 mg/dL (0.15-1.2) 03/16/22 18:00 AST 37 U/L (0-32) H 03/16/22 18:00 ALT 18 U/L (0-33) 03/16/22 18:00 Alkaline Phosphatase 112 U/L (35-105) H 03/16/22 18:00 Total Protein 7.7 g/dL (6.6-8.7) 03/16/22 18:00 Albumin 4.2 g/dL (3.5-5.2) 03/16/22 18:00 Globulin 3.5 g/dL (1.3-4.6) 03/16/22 18:00 Lipase 115 U/L (13-60) H 03/16/22 18:00 Urine Color Yellow (Yellow) 03/16/22 19:55 Urine Appearance Hazy (CLEAR) A 03/16/22 19:55 Urine pH 5 (5-7) 03/16/22 19:55 Ur Specific [place] 1.020 (1.005-1.030) 03/16/22 19:55 Urine Protein Neg (Negative) 03/16/22 19:55 Urine Glucose (UA) Norm (Normal) 03/16/22 19:55 Urine Ketones 1+ (Negative) H 03/16/22 19:55 Urine Blood Neg (Negative) 03/16/22 19:55 Urine Nitrate Negative (Negative) 03/16/22 19:55 Urine Bilirubin 1+ (Negative) H 03/16/22 19:55 Urine Urobilinogen Norm mg/dL (Negative) 03/16/22 19:55 Ur Leukocyte Esterase Negative (Negative) 03/16/22 19:55 Coronavirus 229E (PCR) Not detected (NOT DETECT) 03/17/22 04:15 Human Metapneumovir PCR Not detected (NOT DETECT) 03/17/22 06:20 Entero/Rhino (PCR) Detected (NOT DETECT) A 03/17/22 06:20 SARS-CoV-2 (PCR) Not detected (NOT DETECT) 03/17/22 04:15 Discharge Plan Discharge Patient Disposition: Xfer Short-Term Hosp Clinical Impression: Celiac artery stenosis, Abdominal pain, epigastric Condition: Stable Referrals: Atul Khoury [Primary Care Provider] - Patient Instructions: Abdominal Pain (ED) Sign Out Sign Out Data: Patient Sign Out occurred on 03/17/22 at 06:34. Patient's care was discussed, and care was transferred from to Wesly Celis DO. Coding Level of Care Code ED Carnallite Plant Operator for Chg Fwd Exam Comprehensive Documented by User: Wesly Celis DO 03/17/22 08:55 HPI - Abdominal Pain General: Chief Complaint: Abdominal Pain Stated Complaint: n/v/abd pains Time Seen by Provider: 03/16/22 22:15 PFSH ED PFSH: Medical History Acute carpal tunnel syndrome Arthritis Atherosclerosis of aorta Dyslipidemia GERD (gastroesophageal reflux disease) Headache Hypertension Hyperthyroidism Lyme disease Shingles Surgical History History of bowel resection History of lumbar surgery Hx of appendectomy Hx of colonoscopy 2 yrs ago Hx of total hip arthroplasty Family History Mother Cancer Father Diabetes Son Diabetes Sister Diabetes Social History Smoking and tobacco status: never smoked Alcohol intake: never Physical Exam Neuro: JUHI COMA SCALE: document GCS findings Juhi coma scale total score: 15 Procedures Central Line Placement Right IJ: Time Out Performed: Yes Patient Placed on Monitor/Pulse Ox: Yes MD Prep: mask, gown and gloves Central Line Prep: Chlorhexidine scrub Local Anesthetic: lidocaine 1% Amount of anesthesia used (mL): 5 Central Line Lumen Inserted: triple Post Procedure: sutured in place, good blood return, all ports aspirated, flushed, capped and sterile dressing applied Post Procedure X-Ray: tip of catheter in good position and no pneumothorax seen Patient Tolerated Procedure: well Complications: none Additional Comments: Attempted right subclavian however every time patient exhaled to subclavian completely collapsed. That was abandoned. I was concerned whether or not would be able to cannulate the subclavian vein so had prepped both the right IJ and the subclavian and draped so that attempt could be made at both if needed. Right IJ was cannulated first attempt without difficulty. Post line placement chest x-ray is good. Course Vital Signs: Vital signs: Vital Signs Temperature 97.5 F L 03/17/22 05:00 Pulse Rate 103 H 03/17/22 07:50 Respiratory Rate 18 03/17/22 08:26 Blood Pressure 157/88 03/17/22 07:30 Pulse Oximetry 97 03/17/22 08:26 Oxygen Delivery Me thod 03/17/22 06:00 MDM - Abdominal Pain Medical Decision Making White blood cell count 15.9. Platelet count 425. Creatinine is 1.1. Potassium is 3.3. CTA of the abdomen shows a 90% narrowing the proximal celiac artery. There is contrast seen distally. There is also small pneumatosis of the gastric wall. This is at least mildly concerning for celiac angina/potential ischemia, although her lactic acid is normal. I spoke with vascular surgery at [facility] in [place]. Recommendations are heparin drip and Protonix. Their concern is even with revascularization, if stomach becomes ischemic, they have no foregut surgeon comfortable with gastric resection at that facility. They suggest [place] level of care. We have called out to the [facility] because of this. 5:28 AM: Patient remains on heparin drip. She is received Protonix. She still somewhat hypertensive, but otherwise stable. Morphine seems to help her pain. We have spoken with [facility] in [place], and the [facility], neither of which have any bed availability. [facility] in [place] is willing to discuss the patient, but were having trouble getting images to them so vascular surgery can make a decision. They are hoping they can have the problem solved on their end after 7 1 radiology department is staffed. She will be checked out to Dr. Celis. We are rechecking a lactic acid as well to see if it has risen. Discussed with Dr. Sesay surgery at . They will accept the patient. Will transfer via air VAC. Central line placed prior to discharge. Heparin continued. Medical Records I reviewed the patient's medical records. Lab Data I reviewed the patient's lab results. : 03/17/22 02:23 03/16/22 18:00 Labs/Radiology: Radiology Impressions Abdomen/Pelvis CTA 03/16/22 17:23 IMPRESSION: 1. Abdominal aorta intact. 2. Prominent fluid in stomach, small bowel and colon without dilation may reflect a gastro enterocolitis. 3. 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 4. Right renal artery 70-80% luminal narrowing proximally with contrast seen distally 5. Gallbladder is somewhat prominent, ultrasound could further evaluate this. 6. 12 mm hyperdensity in the distal descending duodenum, likely reflects ingested material, contrast extravasation secondary to active bleeding may also be a consideration depending on the clinical scenario. Additionally some layering dense material is seen in the proximal ascending as well as the descending colon which may reflect ingested material, contrast extravasation secondary to bleeding may also be a consideration, however, no discrete source of bleeding is seen, please correlate clinically as no history of bleeding as indicated. 7. Air is suspected in the gastric wall, as best seen posteriorly, series 2 for image 29, perhaps related to a gastritis, other etiologies such as ischemia are also a consideration depending on the clinical scenario. Laboratory Results WBC 15.9 10^3/uL (4.0-10.0) H 03/16/22 18:00 RBC 5.23 10^6/uL (4.1-5.3) 03/16/22 18:00 Hgb 15.7 g/dL (11.5-15.3) H 03/16/22 18:00 Hct 47.6 % (37.0-47.0) H 03/16/22 18:00 MCV 91.0 fl (81-99) 03/16/22 18:00 MCH 30.0 pg (28.0-34.0) 03/16/22 18:00 MCHC 33.0 g/dL (30.0-36.0) 03/16/22 18:00 RDW 13.8 % (12.1-15.1) 03/16/22 18:00 Plt Count 410 10^3/cmm (130-400) H 03/17/22 02:23 MPV 11.7 fL (7.4-10.4) H 03/16/22 18:00 Neut % (Auto) 82.7 % 03/16/22 18:00 Lymph % (Auto) 10.9 % 03/16/22 18:00 Woodruff % (Auto) 4.9 % 03/16/22 18:00 Eos % (Auto) 0.3 % 03/16/22 18:00 Baso % (Auto) 0.4 % 03/16/22 18:00 Neut # (Auto) 13.14 10^3/uL (1.8-7.7) H 03/16/22 18:00 Lymph # (Auto) 1.7 10^3/uL (0.8-4.8) 03/16/22 18:00 Woodruff # (Auto) 0.8 10^3/uL (0.2-0.9) 03/16/22 18:00 Eos # (Auto) 0.0 10^3/uL (0.0-0.8) 03/16/22 18:00 Baso # (Auto) 0.1 10^3/uL (0.0-0.1) 03/16/22 18:00 Nucleated RBC % (auto) 0 % 03/16/22 18:00 Nucleated RBCs # 0.0 /100WBC 03/16/22 18:00 APTT 48.0 SECONDS (23.9-36.7) H 03/17/22 02:23 Sodium 135 mmol/L (136-145) L 03/16/22 18:00 Potassium 3.3 mmol/L (3.5-5.1) L 03/16/22 18:00 Chloride 95 mmol/L (98-107) L 03/16/22 18:00 Carbon Dioxide 20 mmol/L (22-29) L 03/16/22 18:00 Anion Gap 23.3 (5-19) H 03/16/22 18:00 BUN 23 mg/dL (8-23) 03/16/22 18:00 Creatinine 1.1 mg/dL (0.5-0.9) H 03/16/22 18:00 GFR Calculation 49.4 mL/min (90-130) L 03/16/22 18:00 Glucose 138 mg/dL (65-115) H 03/16/22 18:00 Calculated Osmolality 286 mOsm/kg (285-295) 03/16/22 18:00 Lactate 1.5 mmol/L (0.5-2.2) 03/17/22 05:45 Calcium 9.8 mg/dL (8.5-10.5) 03/16/22 18:00 Total Bilirubin 0.3 mg/dL (0.15-1.2) 03/16/22 18:00 AST 37 U/L (0-32) H 03/16/22 18:00 ALT 18 U/L (0-33) 03/16/22 18:00 Alkaline Phosphatase 112 U/L (35-105) H 03/16/22 18:00 Total Protein 7.7 g/dL (6.6-8.7) 03/16/22 18:00 Albumin 4.2 g/dL (3.5-5.2) 03/16/22 18:00 Globulin 3.5 g/dL (1.3-4.6) 03/16/22 18:00 Lipase 115 U/L (13-60) H 03/16/22 18:00 Urine Color Yellow (Yellow) 03/16/22 19:55 Urine Appearance Hazy (CLEAR) A 03/16/22 19:55 Urine pH 5 (5-7) 03/16/22 19:55 Ur Specific [place] 1.020 (1.005-1.030) 03/16/22 19:55 Urine Protein Neg (Negative) 03/16/22 19:55 Urine Glucose (UA) Norm (Normal) 03/16/22 19:55 Urine Ketones 1+ (Negative) H 03/16/22 19:55 Urine Blood Neg (Negative) 03/16/22 19:55 Urine Nitrate Negative (Negative) 03/16/22 19:55 Urine Bilirubin 1+ (Negative) H 03/16/22 19:55 Urine Urobilinogen Norm mg/dL (Negative) 03/16/22 19:55 Ur Leukocyte Esterase Negative (Negative) 03/16/22 19:55 Coronavirus 229E (PCR) Not detected (NOT DETECT) 03/17/22 04:15 Human Metapneumovir PCR Not detected (NOT DETECT) 03/17/22 06:20 Entero/Rhino (PCR) Detected (NOT DETECT) A 03/17/22 06:20 SARS-CoV-2 (PCR) Not detected (NOT DETECT) 03/17/22 04:15 Discharge Plan Discharge Patient Disposition: Xfer Short-Term Hosp Clinical Impression: Celiac artery stenosis, Abdominal pain, epigastric Condition: Stable Referrals: Atul Khoury [Primary Care Provider] - Patient Instructions: Abdominal Pain (ED) Sign Out Sign Out Data: Patient Sign Out occurred on 03/17/22 at 06:34. Patient's care was discussed, and care was transferred from to Wesly Celis DO. Coding Level of Care Code ED Carnallite Plant Operator for Chg Fwd Exam Comprehensive
[2022-03-17] VITALS (25 sets, daily range): BP systolic 137–185; BP diastolic 70–124; PULSE 86–109; RESP 15–39; TEMP 36.4; O2SAT 91–100
[2022-03-17] MEDS: labetalol 5 mg/mL SDV 20mL 20 MG IVP (00:01)
[2022-03-17] MEDS: morphine 4 mg/mL SDV 1 mL IVP ×3 (00:36→08:26)
[2022-03-17] MEDS: pantoprazole 40 mg SDV 80 MG IVP (02:26)
[2022-03-17 02:28] LABS: Platelet Count 410 10^3/cmm (130-400)
[2022-03-17] MEDS: heparin 5,000 unit/mL INJ 1 mL IV (03:14)
[2022-03-17] MEDS: heparin drip 25,000 UNIT/500 ML PREMIX 14.23 UNIT IV (03:21)
[2022-03-17 06:15] LABS: Adenovirus Not Detected (NOT DETECT); Chlamydia Pneumoniae Not Detected (NOT DETECT); Coronavirus 229E,HKU1,NL63,OC4 Not Detected (NOT DETECT); Human Metapneumovirus Not Detected (NOT DETECT); Human Rhinovirus/Enterovirus Detected (NOT DETECT); Influenza A Not Detected (NOT DETECT); Influenza A H1 Not Detected (NOT DETECT); Influenza A H1-2009 Not Detected (NOT DETECT); Influenza A H3 Not Detected (NOT DETECT); Influenza B Not Detected (NOT DETECT); Mycoplasma Pneumoniae Not Detected (NOT DETECT); Parainfluenza Virus Type 1 Not Detected (NOT DETECT); Parainfluenza Virus Type 2 Not Detected (NOT DETECT); Parainfluenza Virus Type 3 Not Detected (NOT DETECT); Parainfluenza Virus Type 4 Not Detected (NOT DETECT); Respiratory Syncytial Virus A Not Detected (NOT DETECT); Respiratory Syncytial Virus B Not Detected (NOT DETECT); SARS-COV-2 Not Detected (NOT DETECT)
[2022-03-17 06:15] LABS: Lactate (Lactic Acid level) 1.5 mmol/L (0.5-2.2)
[2022-03-17 06:20] LABS: Human Metapneumovirus Not Detected (NOT DETECT); Human Rhinovirus/Enterovirus Detected (NOT DETECT); Results from Genmark
[2022-03-17] MEDS: midazolam 1 mg/mL INJ 2 mL 2 MG IVP (08:27)
--- NOTE | 2022-03-17 08:33 | XRR_ITS ---
PROCEDURE INFORMATION: Exam: XR Chest Exam date and time: 03/17/2022 9:39 AM Age: 66 years old Clinical indication: Device placement; Other: Central line placement TECHNIQUE: Imaging protocol: Radiologic exam of the chest. Views: 1 view. Total images: 317 COMPARISON: CT angio abdomen pelvis 23100 03/16/2022 10:33 PM FINDINGS: Tubes, catheters and devices: A right internal jugular central venous catheter is present, with its tip overlying the region of the right atrium. Lungs: Unremarkable. No consolidation. Pleural spaces: No pneumothorax. Heart/Mediastinum: Unremarkable. No cardiomegaly. Bones/joints: Unremarkable. Gastrointestinal tract: Nonspecific mild distended bowel loops noted in visualized abdomen. XR/XR chest 1V portable [id number] IMPRESSION: 1. A right internal jugular central venous catheter is present, with its tip overlying the region of the right atrium. 2. No pneumothorax. 3. No acute cardiopulmonary process. 4. Nonspecific mild distended bowel loops noted in visualized abdomen.
[2022-03-17] MEDS: piperacillin-tazobactam 3.375 GM in sodium chloride 0.9% (plus) 50 ML IV (08:42)
[2022-03-17] MEDS: morphine 4 mg/mL SDV 1 mL 2 MG IVP (08:51)
[2022-03-17] MEDS: lidocaine 1% INJ 20 mL MDV (mL) INJECTION (08:51)
== END 2022-03-17 09:22 | disposition short-term general hospital (02) ==
PROVIDERS: Emergency Medicine; Emergency Provider Family Medicine; PCP Nurse Practitioner Family
DX: I77.4 Celiac artery compression syndrome (principal); R10.13 Epigastric pain; E78.5 Hyperlipidemia, unspecified; I10 Essential (primary) hypertension; Z20.822 Contact with and (suspected) exposure to COVID-19
CPT/HCPCS: 36415; 36556; 71045; 74174; 80053; 81003; 83605; 83690; 85025; 85049; 85730; 87635; 87801; 96365; 96366; 96375; 99291; C9113; J1644; J2250; J2270; J2405; J2543; J3490; Q9967